=== PATIENT | female | born 1940 | race Caucasian/White ===

== ENCOUNTER 2017-11-26 16:04 | Inpatient (IN) | payer OTHER ==
[~2017-11-26] VITALS: Ht 157.5 cm; Wt 72.6 kg
[~2017-11-26 16:04] MED LIST: ALPRAZOLAM 0.50.5 M1 PO; AMLODIPINE BESYL5 MG PO; ATIVAN0.5 MG PO; ATORVASTATIN CA40 MG PO; BUSPIRONE HCL10 MG PO; COZAAR 50 MG TA50 M2 PO; CRESTOR10 MG; GLUCOPHAGE500 MG PO; MECLIZINE HCL12.5 MG PO; NITROFURANTOIN100 MG; PRILOSEC 20 MG20 MG PO; TOPROL XL50 MG PO; VENLAFAXIN37.5 MG/1 PO
[2017-11-26 16:05] VITALS: BP 128/58
[2017-11-26 16:27] LABS: ABSOLUTE BASOPHILS 0.1 thou/uL (0.0-0.2); ABSOLUTE EOSINOPHILS 0.2 thou/uL (0.0-0.7); ABSOLUTE LYMPHOCYTES 3.7 thou/uL (0.8-5.3); ABSOLUTE MONOCYTES 0.8 thou/uL (0.0-1.2); ABSOLUTE NEUTROPHILS 4.8 thou/uL (1.6-8.1); EOSINOPHILS 2.3 %; HEMATOCRIT 38.5 % (37.0-47.0); HEMOGLOBIN 13.1 gm/dL (12.0-15.0); LYMPHOCYTES 38.1 %; MCH 31.6 pg (26.0-34.0); MCHC 33.9 g/dL (28.0-37.0); MCV 93.3 fL (80.0-100.0); MONOCYTES 8.7 %; MPV 7.2 fl. (7.2-11.1); NUCLEATED RBCS 0 /100WBC; PLATELET COUNT* 450 thou/uL (150-400); POLYS 49.9 %; RBC 4.13 mil/uL (4.20-5.00); WBC 9.7 thou/uL (4.0-11.0)
[2017-11-26 16:36] LABS: ANION GAP 15 mmol/L (7-16); BUN 39 mg/dL (7-18); CALCIUM 8.7 mg/dL (8.5-10.1); CHLORIDE 96 mmol/L (98-107); CO2 21 mmol/L (21-32); CREATININE 1.6 mg/dL (0.6-1.3); GLUCOSE 125 mg/dL (70-99); POTASSIUM 3.2 mmol/L (3.5-5.1); SODIUM 132 mmol/L (136-145)
[2017-11-26 16:38] LABS: APTT 27.1 Seconds (25.0-31.3); INR 1.1; PROTIME 10.5 Seconds (9.20-11.50)
[2017-11-26 16:47] LABS: ALBUMIN 3.6 g/dL (3.4-5.0); ALKALINE PHOSPHATASE 79 U/L (46-116); NT-PRO BRAIN NAT PEPTIDE 253 pg/mL (<300); SGOT 19 U/L (15-37); SGPT 18 U/L (30-65); TOTAL BILIRUBIN 0.6 mg/dL (<0.1-1.0); TOTAL PROTEIN 7.1 g/dL (6.4-8.2); TROPONIN-I LEVEL <0.06 ng/mL (<0.06)
[2017-11-26 18:21] VITALS: BP 118/39
[2017-11-26 18:55] VITALS: BP 119/53
[2017-11-27] VITALS: BP 110/52
[2017-11-27 04:00] VITALS: BP 111/49
[2017-11-27 08:23] VITALS: BP 109/52
[2017-11-27 08:25] VITALS: BP 107/58; BP 119/54
[2017-11-27 09:21] LABS: URINE BILIRUBIN NEGATIVE (Negative); URINE BLOOD 1+ (Negative); URINE CLARITY CLEAR; URINE COLOR YELLOW; URINE GLUCOSE-RANDOM NEGATIVE (Negative); URINE KETONES NEGATIVE (Negative); URINE LEUKOCYTES-REFLEX NEGATIVE (Negative); URINE NITRITE-REFLEX NEGATIVE (Negative); URINE PROTEIN NEGATIVE (Negative); URINE UROBILINOGEN 0.2 E.U./dl (0.2-1.0)
[2017-11-27 09:27] LABS: BACTERIA-REFLEX 1-9 Few /HPF (None Seen); CASTS None Seen /LPF (None Seen); MUCUS 0-3 Light strn/LPF (None Seen); SQUAMOUS 0-3 Few /LPF (0-3); URINE RBC 3-10 Few /HPF (0-2); URINE WBC-REFLEX 0-5 Rare /HPF (0-5)
[2017-11-27 09:28] LABS: CRYSTALS None Seen /LPF (None Seen)
--- NOTE | 2017-11-27 11:59 | EKG ---
[place] [address] ELECTROCARDIOGRAM REPORT Name: AZAR TRAN Room: [address] ADM IN .R.#: [id number] Admission: 11/26/17 Attend Phys: Cinthya Sewell Discharge: Date of : 38 Report #: [id number] THIS REPORT FOR: //name// [facility] ED Test Date: 2017-11-26 Test Time: 16:21:20 Pat Name: AZAR TRAN Department: Room: [facility] Gender: F Physicist Astrophysics: : 1940 Requested By: Tomas Bill Order Number: [id number] MD: Francisco Mcneil Measurements Intervals [place] Rate: 58 P: 13 W[place]: 142 QRS: 16 QRSD: 77 T: 163 QT: 454 QTc: 446 Interpretive Statements Sinus rhythm short pr interval Ventricular premature complex Low voltage, precordial leads Nonspecific T abnrm, anterolateral leads Compared to ECG 11/15/2011 00:50:14 pvc noted Electronically Signed On 11-27-2017 11:59:35 CDT by Francisco Mcneil [email or web address] <ELECTRONICALLY SIGNED> By: Francisco Mcneil MD, [facility] 11/27/17 1159 1621 1621 Francisco Mcneil MD, [facility] /EPI
[2017-11-27 13:28] LABS: CHOLESTEROL 143 mg/dL (<200); HDL CHOLESTEROL 48 mg/dL (>40); LDL CHOLESTEROL 75 mg/dL (<100); TRIGLYCERIDE 102 mg/dL (<150); VLDL 20 mg/dL (<40)
[2017-11-27 13:33] LABS: SERUM ASSESSMENT Clear
[2017-11-27 16:00] VITALS: BP 116/57
[2017-11-27 17:06] VITALS: BP 116/57
--- NOTE | 2017-12-02 17:33 | EEG ---
[address] [address] EEG STUDY REPORT Name: CHELSEAAZAR S Room: [address]R#: [id number] Admission: 11/26/17 Attend Phys: Cinthya Sewell Discharge: 11/27/17 Date of : 38 Report #: [id number] THIS REPORT FOR: //name// CC: Иван Reynaga DATE OF SERVICE: 11/27/2017 This patient is being evaluated for dizziness. EEG was done by placing the electrodes by standard 10-20 system of electrode placement. Both referential and sequential montages were used for recording. This patient's EEG has a significant amount of artifact making the interpretation of this EEG very difficult. Background activity in this patient's EEG appeared to be about 10 Hz and 30 microvolt. This is a symmetrical activity. Photic stimulation was unremarkable. The patient went to sleep that was associated with bilateral slowing and vertex sharp waves. Throughout the record, no active epileptiform activity was noticed. IMPRESSION: This patient's EEG has a lot of artifact and is difficult to interpret, but does not appear to be showing any definite abnormality. Thank you very much for this referral. <ELECTRONICALLY SIGNED> By: Florentino Stephens MD 12/02/17 1733 1113 1138Florentino Stephens MD /chente
--- NOTE | 2017-12-02 17:33 | CON ---
[address] [address] CONSULTATION Name: CHELSEAAZRA S Room: [address] IN M.R.#: [id number] Admission: 11/26/17 Attend Phys: Cinthya Sewell Discharge: 11/27/17 Date of : 38 Report #: [id number] THIS REPORT FOR: //name// CC: Иван Reynaga DATE OF SERVICE: 11/27/2017 HISTORY OF PRESENT ILLNESS: This is a 77-year-old female patient who was evaluated by me for any neurological etiology for the patient's dizziness. The patient indicates that she had dizziness for which she was admitted. The episode they described that she was having this dizzy spell, which progressively became worse and then she passed out. She did not have any tonic-clonic activity. She improved and she had at least some dizziness in the past. History is not very clear in that regard. She said dizziness was severe when it happened. REVIEW OF SYSTEMS: Positive for the fact that she has a history of dyslipidemia. She does take multiple psychotropic medications. She has a history of anxiety, hysterectomy, acid reflux, hypertension. I carried out the 14-point review of system. It does not look like she is having any eye, cardiac, respiratory, GI, , musculoskeletal, constitutional, dermatological, hematological, psychiatric, throat, allergic symptom associated with present symptomatology. She does have a prior history of anxiety. PAST MEDICAL HISTORY: Positive for these kinds of spells, but further history is not clear. FAMILY HISTORY: Negative for early age stroke. SOCIAL HISTORY: She indicates she does not smoke. PHYSICAL EXAMINATION: NEUROLOGIC: Indicates she is alert. She is responsive. She can follow simple command. Her speech, concentration, fund of knowledge and memory is at her baseline. Cranial nerve examination 2-12 looks unremarkable. Strength, sensation, reflexes and tone looks symmetrical. There is no meningeal sign. There is no carotid bruit. There is no thyroid mass. I could not look at the fundus. She is a reasonably built individual who does not have any dysmorphic features of eyes, ears and face. Hearing may be somewhat impaired, but vision looks intact. EXTREMITIES: Pulses are difficult to feel. She has no edema, cyanosis or jaundice. CARDIAC: Appears unremarkable. LUNGS: No respiratory difficulty or rhonchi were noticed on either side. VITAL SIGNS: Blood pressure is 119/54, pulse is 83, temperature is 97.7. [place] [address] CONSULTATION Name: AZAR TRAN Room: [address]#: [id number] Admission: 11/26/17 Attend Phys: Cinthya Sewell Discharge: 11/27/17 Date of : 39 Report #: [id number] LABORATORY DATA: She is slightly hyponatremic and potassium is somewhat low. Her GFR is only 31. She did have an MRI, which was reviewed and that was okay and a carotid Doppler is okay. IMPRESSION: It is unlikely that there is any neurological etiology for the patient's symptom. I will do an EEG and a carotid Doppler to further exclude the neurological etiology, but I will suggest concentrating on evaluating her for ENT, cardiac or other systemic etiology as the cause of her symptom. I noticed you planned to check for orthostatic hypotension and that also may be considered in her case. RECOMMENDATIONS: 1. We will check the patient's MRA also. 2. I will check an EEG. 3. As I mentioned, neurological etiology is unlikely. If the above workup is unremarkable, then that will be even less likely. I will suggest mainly concentrating on evaluating and managing the non-neurological etiology for the patient's symptom. <ELECTRONICALLY SIGNED> By: Florentino Stephens MD 12/02/17 1733 1436 0733Florentino Stephens MD /nt
== END 2017-11-27 17:30 | disposition home or self-care (01) | DRG 683 ==
LOC: M.ERS 16:04 → M.TBA-ER 17:34 → M.2W 17:34
PROVIDERS: Family Medicine; ADMIT Internal Medicine
DX: N17.9 Acute kidney failure, unspecified (principal); E87.1 Hypo-osmolality and hyponatremia; K21.9 Gastro-esophageal reflux disease without esophagitis; E78.5 Hyperlipidemia, unspecified; I12.9 Hypertensive chronic kidney disease with stage 1 through stage 4 chronic kidney disease, or unspecified chronic kidney disease; E86.0 Dehydration; N18.3 Chronic kidney disease, stage 3 (moderate); I95.1 Orthostatic hypotension; F41.9 Anxiety disorder, unspecified; Z90.49 Acquired absence of other specified parts of digestive tract; Z90.710 Acquired absence of both cervix and uterus; Z79.899 Other long term (current) drug therapy; Z88.8 Allergy status to other drugs, medicaments and biological substances

== ENCOUNTER 2018-05-31 00:22 | Inpatient (IN) | payer OTHER ==
[~2018-05-31] VITALS: Ht 157.5 cm; Wt 74.8 kg
[2018-05-31] VITALS (9 sets, daily range): BP systolic 103–151; BP diastolic 48–87
[2018-05-31 00:59] LABS: ABSOLUTE BASOPHILS 0.1 thou/uL (0.0-0.2); ABSOLUTE EOSINOPHILS 0.2 thou/uL (0.0-0.7); ABSOLUTE LYMPHOCYTES 1.6 thou/uL (0.8-5.3); ABSOLUTE MONOCYTES 0.7 thou/uL (0.0-1.2); ABSOLUTE NEUTROPHILS 4.5 thou/uL (1.6-8.1); BASOPHILS 1.3 %; EOSINOPHILS 2.5 %; HEMATOCRIT 38.8 % (37.0-47.0); HEMOGLOBIN 13.1 gm/dL (12.0-15.0); LYMPHOCYTES 22.4 %; MCH 31.6 pg (26.0-34.0); MCHC 33.7 g/dL (28.0-37.0); MCV 93.6 fL (80.0-100.0); MONOCYTES 9.9 %; NUCLEATED RBCS 0 /100WBC; PLATELET COUNT* 342 thou/uL (150-400); POLYS 63.9 %; RBC 4.14 mil/uL (4.20-5.00)
[2018-05-31] MEDS ORDERED: BENICAR40 MG PO ×2 (01:15)
[2018-05-31] MEDS ORDERED: WELLBUTRIN XL150 MG PO (01:16)
[2018-05-31] MEDS ORDERED: ABILIFY 5 MG TAB5 M1 PO (01:16)
[2018-05-31] MEDS ORDERED: GLUCOPHAGE XR500 MG PO (01:17)
[2018-05-31] MEDS ORDERED: CRESTOR20 MG PO (01:18)
[2018-05-31] MEDS ORDERED: VITAMIN D PO (01:19)
[2018-05-31] MEDS ORDERED: METOPROLOL TART25 MG PO (01:19)
[2018-05-31] MEDS ORDERED: CYMBALTA60 MG PO (01:20)
[2018-05-31] MEDS ORDERED: SYNTHROID25 MC1 PO (01:20)
[2018-05-31] MEDS ORDERED: NITROGLYCERIN0.4 MG SUBLING (01:21)
[2018-05-31] MEDS ORDERED: OXYBUTYNIN 5 MG5 M2 PO (01:21)
[2018-05-31] MEDS ORDERED: ASPIRIN81 M2 PO (01:22)
[2018-05-31] MEDS ORDERED: MACROBID 100 M100 M1 PO (01:22)
[2018-05-31 01:23] LABS: ANION GAP 4 mmol/L (7-16); BUN 26 mg/dL (7-18); CALCIUM 8.9 mg/dL (8.5-10.1); CHLORIDE 102 mmol/L (98-107); CO2 25 mmol/L (21-32); CREATININE 1.4 mg/dL (0.6-1.3); GLUCOSE 98 mg/dL (70-99); POTASSIUM 4.4 mmol/L (3.5-5.1); SODIUM 131 mmol/L (136-145)
[2018-05-31] MEDS ORDERED: FLONASE 0.05%50 MCG NASAL (01:23)
[2018-05-31 01:26] LABS: APTT 26.8 Seconds (25.0-31.3); INR 1.1; PROTIME 10.9 Seconds (9.20-11.50)
[2018-05-31 01:30] LABS: ALBUMIN 3.3 g/dL (3.4-5.0); ALKALINE PHOSPHATASE 68 U/L (46-116); SGOT 17 U/L (15-37); SGPT 19 U/L (30-65); TOTAL BILIRUBIN 0.5 mg/dL (<0.1-1.0); TOTAL PROTEIN 6.5 g/dL (6.4-8.2); TROPONIN-I LEVEL <0.06 ng/mL (<0.06)
--- NOTE | 2018-05-31 05:00 | NUR ---
ASSUMED CARE OF PT AT 0215. PT IS ALERT AND ORIENTED. VSS. PERRLA. NO COMPLAINTS OF PAIN. PT IS UP TO COMMODE WITH ASSIST X'S 1. PT IS IN SINUS RYTHM ON THE TELEMETRY. PT IS RESTING COMFORTABLY IN BED. RESPIRATIONS ARE EVEN AND NONLABORED. WILL CONTINUE TO MONITOR PT.
[2018-05-31 05:59] LABS: URINE BILIRUBIN NEGATIVE (Negative); URINE BLOOD 1+ (Negative); URINE CLARITY CLEAR; URINE COLOR YELLOW; URINE GLUCOSE-RANDOM NEGATIVE (Negative); URINE KETONES NEGATIVE (Negative); URINE LEUKOCYTES-REFLEX TRACE (Negative); URINE NITRITE-REFLEX NEGATIVE (Negative); URINE PROTEIN NEGATIVE (Negative); URINE SPECIFIC GRAVITY <= 1.005 (1.005-1.030); URINE UROBILINOGEN 0.2 E.U./dl (0.2-1.0)
[2018-05-31 06:17] LABS: CASTS None Seen /LPF (None Seen); SQUAMOUS NONE SEEN /LPF (0-3)
[2018-05-31 06:18] LABS: BACTERIA-REFLEX None Seen /HPF (None Seen); CRYSTALS None Seen /LPF (None Seen); URINE RBC 0-2 Rare /HPF (0-2); URINE WBC-REFLEX 0-5 Rare /HPF (0-5)
--- NOTE | 2018-05-31 10:30 | NUR ---
ASSUMED CARE OF PT THIS AM AROUND 0715- SALES AND SERVICE ENGINEER IN PLACE ORDERED, TRACING SR- UPON ASSESSMENT PT NOTED TO BE RESTING IN BED, WATCHING TV- PT A&O X4- CONTINENT OF BOWEL AND BLADDER- LIMITED SBA WITH TRANSFERS FOR SAFETY- DIMINISHED LUNG SOUNDS NOTED- RESP EVEN AND UN-LABORED- VSS, O2 SAT 93% ON RA- ABD SOFT/ROUND/NON-TENDER, BS X4 QUADS- LAST BM REPORTED 05/30/18- IV NOTED TO RIGHT HAND INTACT AND SL- 1+ BLE EDEME NOTED- CARDIOLOGY CONSULTED THIS AM WITH ORTHOSTATS ORDERED AND COMPLETED IN [facility]- PT EVAL AND TREAT INITIATED THIS AM- LOSARTAN D/C'D WITH AMLODIPINE 2.5MG STARTED- PT DENIES ANY C/O PAIN/DISCOMFORT AT THIS TIME-CALL LIGHT AND PERSONAL BELONGINGS WITH IN REACH- HOURLY ROUNDS IN PLACE R/T SAFETY/NEEDS- ALL NEEDS MET AT THIS TIME-WCTM
--- NOTE | 2018-05-31 17:08 | NUR ---
PT CURRENTLY RESTING IN BED, WATCHING TV- MARKET RESEARCH SPECIALIST IN PLACE ORDERED, TRACING SR- IV NOTED TO RIGHT HAND INTACT AND SL- GOOD PO INTAKE NOTED THIS SHIFT WITH MEALS- PT AND SON EXPRESSED WISHES TO TO BE D/C'D MICHAEL- HERE TO SPEAK WITH PT AND SON TO ADDRESS CONCERNS WITH PROBABILITY OF D/C REPORTED WITH CAROTID US STAT ORDERED FOR TODAY- PT DENIES ANY C/O PAIN/DISCOMFORT AT THIS TIME- CALL LIGHT AND PERSONAL BELONGINGS WITH IN REACH- PT MAKES NEEDS KNOWN- ALL NEEDS MET AT THIS TIME-WCTM
[2018-06-01] VITALS: BP 127/63
--- NOTE | 2018-06-01 03:12 | NUR ---
ASSUMED PT CARE AT 1930. ASSESSMENT COMPLETED CHARTED. ABLE TO MAKE NEEDS KNOWN. PT C/O WEAKNESS AND DIZZINESS. UP WITH STANDBY ASSIST. VSS. PT RESTING IN BED AT THIS TIME. WILL CONTINUE TO MONITOR.
[2018-06-01 04:00] VITALS: BP 135/58
[2018-06-01 08:10] VITALS: BP 136/62
--- NOTE | 2018-06-01 09:50 | NUR ---
ASSUMED CARE OF PT THIS AM AROUND 0715- ASSISTANT FINANCE MANAGER IN PLACE ORDERED, TRACING SR- UPON ASSESSMENT PT NOTED TO BE RESTING IN BED- PT A&O X4- CONTINENT OF BOWEL AND BLADDER- SBA WITH TRANSFERS- LCTA, RESP EVEN AND UN-LABORED- VSS, O2 SAT 93% ON RA-ABD SOFT/ROUND/NON-TENDER, BS X4 QUADS- LAST BM REPORTED X2 DAYS AGO- IV NOTED TO RIGHT HAND INTACT AND SL- +1 BLE EDEMA NOTED- PT UP TO BED SIDE CHAIR THIS AM WITH BREAKFAST, GOOD PO INTAKE NOTED- STRESS ECHO/NUC STRESS PLANNED IN AM, NPO TO BE AT MIDNIGHT- BS MONITORED ORDERED, CONTROLLED PER METFORMIN- PT DENIES ANY C/O PAIN/DISCOMFORT AT THIS TIME- CALL LIGHT AND PERSONAL BELONGINGS WITH IN REACH- PT MAKES NEEDS KNOWN- ALL NEEDS MET AT THIS TIME-WCTM
[2018-06-01 11:39] VITALS: BP 118/59
[2018-06-01 11:56] VITALS: BP 118/59
[2018-06-01] MEDS ORDERED: NORVASC2.5 M1 PO (12:30)
--- NOTE | 2018-06-01 13:07 | NUR ---
PT ANXIUOS AND EXPRESSES WISHES TO TO [facility] D/C'D TODAY- HERE TO RE-ROUND ON PT TO ADDRESS CONCERNS- ORDERS RECIEVIED FOR OKAY TO D/C HOME WITH NEED FOR FOLLOW UP WITH CARDIOLOGY OUT PT FOR STRESS ECHO PER - NEEDED FOLLOW UP ALONG WITH CHANGED MEDICAITONS COMMUNICATED TO PT WITH VERBAL UNDERSTANDING RECIEVIED PER PT- IV TO RIGHT HAND D/C'D ALONG WITH BAKED AND GRAPHITE INSPECTOR PRIOR TO D/C- ALL QUESTIONS AND CONCERNS ADDRESSED PRIOR TO D/C-- WRITTEN EDUCATION ALONG WITH SCRIPTS PROVIDED TO PT PRIOR TO D/C- PT BELONGINGS PACKED AND ACCOUNTED FOR PER PT ADN SON- PT ESCORTED PER TECH VIA W/C TO VEHICLE WITH BELONGINGS; SON AT SIDE AT 1310- NO PROBLEMS TO NOTE AT TIME OF D/C
--- NOTE | 2018-06-02 10:59 | EKG ---
[place] [address] ELECTROCARDIOGRAM REPORT Name: AZAR TRAN Room: [address] IN M.R.#: [id number] Admission: 05/31/18 Attend Phys: Vikas Meek MD Discharge: 06/01/18 Date of : 39 Report #: [id number] THIS REPORT FOR: //name// [facility] ED Test Date: 2018-05-31 Test Time: 01:21:57 Pat Name: AZAR TRAN Department: Room: [facility] Gender: F Combine Inspector: JYOTI : 1940 Requested By: Tomas Bill Order Number: [id number] MD: Charles Kasper Measurements Intervals [place] Rate: 58 P: -15 [place]: 141 QRS: 7 QRSD: 95 T: 61 QT: 446 QTc: 439 Interpretive Statements Sinus rhythm Low voltage, precordial leads Compared to ECG 11/26/2017 16:21:20 Short CA interval no longer present Ventricular premature complex(es) no longer present Electronically Signed On 06-02-2018 10:59:00 COOKER SYRUP by Charles Kasper [email or web address] <ELECTRONICALLY SIGNED> By: Charles Kasper MD, [facility] 06/02/18 1059 0121 0121 Charles Kasper MD, [facility] /EPI
== END 2018-06-01 13:12 | disposition home or self-care (01) | DRG 982 ==
LOC: M.ERS 00:22 → M.TBA-ER 01:26 → M.2W 01:40
PROVIDERS: Family Medicine; ADMIT Internal Medicine
PROC: 0JQ00ZZ Repair Scalp Subcutaneous Tissue and Fascia, Open Approach (ICD-10-PCS; principal; 2018-05-31)
DX: I95.1 Orthostatic hypotension (principal); E87.1 Hypo-osmolality and hyponatremia; S01.01XA Laceration without foreign body of scalp, initial encounter; I25.10 Atherosclerotic heart disease of native coronary artery without angina pectoris; F41.9 Anxiety disorder, unspecified; F32.9 Major depressive disorder, single episode, unspecified; E11.9 Type 2 diabetes mellitus without complications; N28.9 Disorder of kidney and ureter, unspecified; I10 Essential (primary) hypertension; Y93.01 Activity, walking, marching and hiking; W18.30XA Fall on same level, unspecified, initial encounter; I65.29 Occlusion and stenosis of unspecified carotid artery; Z79.82 Long term (current) use of aspirin; Z79.899 Other long term (current) drug therapy; I25.2 Old myocardial infarction; Y99.8 Other external cause status; Y92.091 Bathroom in other non-institutional residence as the place of occurrence of the external cause; Z88.8 Allergy status to other drugs, medicaments and biological substances; Z79.84 Long term (current) use of oral hypoglycemic drugs; Z95.5 Presence of coronary angioplasty implant and graft; Z23 Encounter for immunization

== ENCOUNTER → 2018-06-13 | Outpatient (CLI) | payer OTHER ==
[~2018-06-13] MED LIST changes: +ABILIFY 5 MG TAB5 M1 PO; +ASPIRIN81 M2 PO; +BENICAR40 MG PO; +CRESTOR20 MG PO; +CYMBALTA60 MG PO; +FLONASE 0.05%50 MCG NASAL; +GLUCOPHAGE XR500 MG PO; +MACROBID 100 M100 M1 PO; +METOPROLOL TART25 MG PO; +NITROGLYCERIN0.4 MG SUBLING; +NORVASC2.5 M1 PO; +OXYBUTYNIN 5 MG5 M2 PO; +SYNTHROID25 MC1 PO; +VITAMIN D PO; +WELLBUTRIN XL150 MG PO
--- NOTE | ~2018-06-13 | EEG ---
[address] [address] EEG STUDY REPORT Name: AZAR TRAN Room: [facility]#: [id number] Admission: 06/13/18 Attend Phys: Florentino Stephens MD Discharge: Date of : 39 Report #: [id number] THIS REPORT FOR: //name// CC: Иван Stephens DATE OF SERVICE: 06/13/2018 This patient is being evaluated for dizziness. EEG was done by placing the electrode by standard 10-20 system of electrode placement. Both referential and sequential montages were used for recording. Background activity in this patient's EEG is about 8 Hz and 30 microvolt. It is a symmetrical activity. Photic stimulation was unremarkable. The patient became drowsy that is associated with bilateral slowing and vertex sharp waves. Throughout the record, no active epileptiform activity was noticed. IMPRESSION: This patient's EEG is unremarkable. Thank you very much for this referral. By: 1416 1650Florentino Stephens MD /nt
== END ==
LOC: M.CRD 09:27
DX: R42 Dizziness and giddiness (principal)

== ENCOUNTER 2018-07-06 12:51 | Emergency (ER) | payer OTHER ==
[~2018-07-06] VITALS: Ht 157.5 cm; Wt 72.6 kg
[2018-07-06] MEDS ORDERED: PROZAC40 MG PO (13:07)
[2018-07-06 14:44] LABS: ABSOLUTE BASOPHILS 0.1 thou/uL (0.0-0.2); ABSOLUTE EOSINOPHILS 0.1 thou/uL (0.0-0.7); ABSOLUTE LYMPHOCYTES 2.1 thou/uL (0.8-5.3); ABSOLUTE MONOCYTES 0.6 thou/uL (0.0-1.2); ABSOLUTE NEUTROPHILS 3.9 thou/uL (1.6-8.1); BASOPHILS 1.4 %; EOSINOPHILS 1.2 %; HEMATOCRIT 40.3 % (37.0-47.0); HEMOGLOBIN 13.5 gm/dL (12.0-15.0); LYMPHOCYTES 30.6 %; MCH 30.8 pg (26.0-34.0); MCHC 33.4 g/dL (28.0-37.0); MCV 92.1 fL (80.0-100.0); MONOCYTES 8.4 %; MPV 7.2 fl. (7.2-11.1); NUCLEATED RBCS 0 /100WBC; PLATELET COUNT* 406 thou/uL (150-400); POLYS 58.4 %; RBC 4.37 mil/uL (4.20-5.00); RDW-CV 13.9 % (10.5-14.5); WBC 6.7 thou/uL (4.0-11.0)
[2018-07-06 14:48] LABS: URINE BILIRUBIN NEGATIVE (Negative); URINE BLOOD 2+ (Negative); URINE CLARITY CLEAR; URINE COLOR YELLOW; URINE GLUCOSE-RANDOM NEGATIVE (Negative); URINE KETONES NEGATIVE (Negative); URINE LEUKOCYTES-REFLEX NEGATIVE (Negative); URINE NITRITE-REFLEX NEGATIVE (Negative); URINE PROTEIN NEGATIVE (Negative); URINE SPECIFIC GRAVITY 1.015 (1.005-1.030); URINE UROBILINOGEN 0.2 E.U./dl (0.2-1.0)
[2018-07-06 14:53] LABS: SQUAMOUS 0-3 Few /LPF (0-3)
[2018-07-06 14:54] LABS: URINE RBC 3-10 Few /HPF (0-2); URINE WBC-REFLEX 0-5 Rare /HPF (0-5)
[2018-07-06 14:55] LABS: AMP/METHAMP Negative (Negative); BACTERIA-REFLEX 1-9 Few /HPF (None Seen); BARBITURATES Negative (Negative); BENZODIAZEPINES Negative (Negative); CASTS None Seen /LPF (None Seen); COCAINE Negative (Negative); CRYSTALS None Seen /LPF (None Seen); METHADONE Negative (Negative); MUCUS None Seen strn/LPF (None Seen); OPIATES Negative (Negative); PCP Negative (Negative); THC Negative (Negative)
[2018-07-06] MEDS ORDERED: AMITRIPTYLINE H75 M1 PO (15:05)
[2018-07-06 15:06] LABS: ALBUMIN 3.6 g/dL (3.4-5.0); CALCIUM 9.1 mg/dL (8.5-10.1); CREATININE 1.3 mg/dL (0.6-1.3); POTASSIUM 3.8 mmol/L (3.5-5.1); TOTAL BILIRUBIN 0.4 mg/dL (<0.1-1.0)
[2018-07-06 15:21] VITALS: BP 130/82
== END 2018-07-06 15:22 | disposition home or self-care (01) ==
LOC: M.ERS 12:51
PROVIDERS: Personal Emergency Response Attendant
DX: F41.9 Anxiety disorder, unspecified (principal); G47.8 Other sleep disorders; T43.225A Adverse effect of selective serotonin reuptake inhibitors, initial encounter; I10 Essential (primary) hypertension; F32.9 Major depressive disorder, single episode, unspecified; E11.9 Type 2 diabetes mellitus without complications; Z88.8 Allergy status to other drugs, medicaments and biological substances; Y92.89 Other specified places as the place of occurrence of the external cause; Z79.899 Other long term (current) drug therapy

== ENCOUNTER → 2018-07-10 | Outpatient (CLI) | payer OTHER ==
[~2018-07-10] MED LIST changes: +AMITRIPTYLINE H75 M1 PO; +PROZAC40 MG PO
== END ==
LOC: M.LAB 11:58
DX: R42 Dizziness and giddiness (principal)

== ENCOUNTER 2018-12-21 15:27 | Observation (INO) | payer OTHER ==
[~2018-12-21] VITALS: Ht 157.5 cm; Wt 62.2 kg
[2018-12-21 15:27] VITALS: BP 91/57
[~2018-12-21 15:27] MED LIST changes: -VITAMIN D PO; +VITAMIN D5000 UNIT PO
[2018-12-21 16:18] LABS: ABSOLUTE BASOPHILS 0.1 thou/uL (0.0-0.2); ABSOLUTE EOSINOPHILS 0.1 thou/uL (0.0-0.7); ABSOLUTE LYMPHOCYTES 1.8 thou/uL (0.8-5.3); ABSOLUTE MONOCYTES 0.6 thou/uL (0.0-1.2); ABSOLUTE NEUTROPHILS 3.8 thou/uL (1.6-8.1); BASOPHILS 1.1 %; EOSINOPHILS 1.4 %; HEMATOCRIT 35.6 % (37.0-47.0); HEMOGLOBIN 11.9 gm/dL (12.0-15.0); LYMPHOCYTES 28.9 %; MCH 32.1 pg (26.0-34.0); MCHC 33.5 g/dL (28.0-37.0); MCV 95.9 fL (80.0-100.0); MONOCYTES 9.2 %; MPV 6.9 fl. (7.2-11.1); NUCLEATED RBCS 0 /100WBC; PLATELET COUNT* 346 thou/uL (150-400); POLYS 59.4 %; RBC 3.71 mil/uL (4.20-5.00); RDW-CV 13.5 % (10.5-14.5); WBC 6.3 thou/uL (4.0-11.0)
[2018-12-21 16:22] LABS: INR 1.1
[2018-12-21 16:23] LABS: ANION GAP 10 mmol/L (7-16); BUN 25 mg/dL (7-18); CALCIUM 8.4 mg/dL (8.5-10.1); CHLORIDE 103 mmol/L (98-107); CO2 24 mmol/L (21-32); CREATININE 1.5 mg/dL (0.6-1.3); GLUCOSE 113 mg/dL (70-99); POTASSIUM 4.1 mmol/L (3.5-5.1); SODIUM 137 mmol/L (136-145)
[2018-12-21 16:35] LABS: ALBUMIN 3.2 g/dL (3.4-5.0); ALKALINE PHOSPHATASE 58 U/L (46-116); LIPASE 120 U/L (73-393); NT-PRO BRAIN NAT PEPTIDE 345 pg/mL (<300); SGOT 12 U/L (15-37); SGPT 18 U/L (30-65); TOTAL BILIRUBIN 0.2 mg/dL (<0.1-1.0); TROPONIN-I LEVEL <0.06 ng/mL (<0.06)
[2018-12-21] MEDS ORDERED: ARICEPT 5 MG TAB5 MG PO (16:56)
[2018-12-21 16:58] LABS: URINE BILIRUBIN NEGATIVE (Negative); URINE BLOOD TRACE (Negative); URINE CLARITY CLEAR; URINE COLOR YELLOW; URINE GLUCOSE-RANDOM NEGATIVE (Negative); URINE KETONES NEGATIVE (Negative); URINE LEUKOCYTES-REFLEX 1+ (Negative); URINE NITRITE-REFLEX NEGATIVE (Negative); URINE PROTEIN NEGATIVE (Negative); URINE UROBILINOGEN 0.2 E.U./dl (0.2-1.0)
[2018-12-21] MEDS ORDERED: LAMICTAL XR100 MG PO (16:58)
[2018-12-21 17:03] LABS: SQUAMOUS 0-3 Few /LPF (0-3)
[2018-12-21 17:04] LABS: URINE WBC-REFLEX 6-15 Few /HPF (0-5)
[2018-12-21 17:05] LABS: BACTERIA-REFLEX >30 Many /HPF (None Seen); HYALINE CASTS 4-10 Moderate /LPF (None Seen); MUCUS >6 Heavy strn/LPF (None Seen); URINE RBC 0-2 Rare /HPF (0-2)
[2018-12-21 17:07] LABS: CRYSTALS None Seen /LPF (None Seen)
[2018-12-21 18:04] VITALS: BP 115/51
[2018-12-21 19:30] VITALS: BP 156/79
[2018-12-21 20:00] VITALS: BP 111/64
[2018-12-22] VITALS (7 sets, daily range): BP systolic 105–137; BP diastolic 55–62
--- NOTE | 2018-12-22 04:14 | NUR ---
ASSUMED PT CARE AFTER REPORT FROM ZULY SALAS AT 1930. PT IS AWAKE AND ORIENTED X4, FORGETFUL AT TIMES. VSS ON ROOM AIR. TRANSFER WORKER IN PLACE TRACING SR. ADMISSION ASSESSMENT DONE AND CHARTED. PT DENIES PAIN AND DIZZINESS, STATING SHE IS FEELING BETTER. PT IS ADVISED ON THE USE OF CALL LIGHT, AND ORIENTED TO ROOM SET UP. PT IS ABLE TO GET UP TO THE BATHROOM WITH STANDBY ASSIST, PT DENIES GETTING DIZZY ON AMBULATION. PT IS ABLE TO SLEEP MOST OF THE NIGHT. CALL LIGHT WITHIN REACH. FALL PRECAUTIONS IN PLACE. HOURLY ROUNDING DONE FOR PT SAFETY.
[2018-12-22 05:05] LABS: ABSOLUTE BASOPHILS 0.1 thou/uL (0.0-0.2); ABSOLUTE EOSINOPHILS 0.1 thou/uL (0.0-0.7); ABSOLUTE MONOCYTES 0.6 thou/uL (0.0-1.2); ABSOLUTE NEUTROPHILS 3.3 thou/uL (1.6-8.1); BASOPHILS 1.1 %; EOSINOPHILS 1.9 %; HEMATOCRIT 36.4 % (37.0-47.0); HEMOGLOBIN 12.1 gm/dL (12.0-15.0); LYMPHOCYTES 32.6 %; MCH 32.1 pg (26.0-34.0); MCHC 33.3 g/dL (28.0-37.0); MCV 96.4 fL (80.0-100.0); MONOCYTES 10.6 %; MPV 6.8 fl. (7.2-11.1); NUCLEATED RBCS 0 /100WBC; PLATELET COUNT* 323 thou/uL (150-400); POLYS 53.8 %; RBC 3.78 mil/uL (4.20-5.00); RDW-CV 13.6 % (10.5-14.5); WBC 6.1 thou/uL (4.0-11.0)
[2018-12-22 05:16] LABS: CALCIUM 8.4 mg/dL (8.5-10.1); CREATININE 1.2 mg/dL (0.6-1.3); POTASSIUM 4.1 mmol/L (3.5-5.1)
[2018-12-22] MEDS ORDERED: CEFUROXIME500 MG PO (09:54)
--- NOTE | 2018-12-22 12:00 | EKG ---
[place] [address] ELECTROCARDIOGRAM REPORT Name: CHELSEAAZAR WRIGHT Room: [address] M.R.#: [id number] Admission: 12/21/18 Attend Phys: Seth Goss MD Discharge: Date of : 38 Report #: [id number] THIS REPORT FOR: //name// [facility] ED Test Date: 2018-12-21 Test Time: 15:31:56 Pat Name: AZAR TRAN Department: Room: [facility] Gender: F Eyeglass Fitter: MT : 1940 Requested By: Donnie Joya Order Number: [id number] MD: Charles Kasper Measurements Intervals [place] Rate: 57 P: -5 [place]: 166 QRS: 22 QRSD: 85 T: 56 QT: 476 QTc: 464 Interpretive Statements Sinus rhythm Low voltage, precordial leads Compared to ECG 05/31/2018 01:21:57 No significant changes Electronically Signed On 12-22-2018 11:59:40 CDT by Charles Kasper [email or web address] <ELECTRONICALLY SIGNED> By: Charles Kasper MD, [facility] 12/22/18 1159 1531 1531 Charles Kasper MD, [facility] /EPI
--- NOTE | 2018-12-22 13:12 | NUR ---
Pt is A&O. Resides at home alone. Pt has 3 sons and 1 lives next door and assists as needed. Pt is able to cook and clean, stopped driving in July post vertigo dx. Pt has a walker and cane at home but states that she does not currently use either. Hx of [facility] HH. No hx of SNF. Goal is home at dc, no needs anticipated.
--- NOTE | 2018-12-22 15:20 | NUR ---
PT DC HOME. NEUROLOGY CONSULT TO HAVE PATIENT FOLLOW UP WITH ENT. PT ALERT AND ORIENTED X4. VSS. IV DC WITHOUT COMPLICATIONS. PT LEFT WITH SON, ALL BELONGINGS SENT.
--- NOTE | 2018-12-27 17:09 | CON ---
[address] [address] CONSULTATION Name: AZAR TRAN Room: [address] Deb Queen#: [id number] Admission: 12/21/18 Attend Phys: Seth Goss MD Discharge: 12/22/18 Date of : 39 Report #: [id number] THIS REPORT FOR: //name// CC: Seth Mckeonlinda [facility] DATE OF SERVICE: 12/22/2018 HISTORY OF PRESENT ILLNESS: This is a 78-year-old female patient who has trouble with longstanding episode of dizziness. I have seen this patient in the past and this patient has seen multiple physicians in the past. We could not determine any etiology for the patient's dizzy spell and she was referred to [facility]. They did some testing on her, but I do not know what they found. During this dizzy spell, she is fully conscious. She did not pass out. She thought she was going to pass out, but she stayed fully conscious. It is not clear what her blood pressure and pulse was during this episode. She was not feeling well during this episode and before that she was having some dizziness. She also had urinary tract infection and some nausea associated with this. REVIEW OF SYSTEMS: Indicates she has a history of anxiety, hypertension, dizzy spell for which she has seen Dr. Bravo who is an ENT physician. She said she does have a history of diabetes. She does not know what her blood sugar is at this time. She is on lamotrigine and in spite of that, she is having these spells. She does have a history of hypothyroidism as well as depression and anxiety. A 14-point review of system was carried out and it does not appear to be showing any new eye, ENT, cardiac, respiratory, GI, , musculoskeletal, constitutional, dermatological, hematological, psychiatric, throat, allergic symptom associated with present symptomatology. PAST MEDICAL HISTORY: Positive for these spells and reviewing her records will indicate that she had these kind of episode for a long period of time. FAMILY HISTORY: Mostly unremarkable. SOCIAL HISTORY: She says she does not abuse alcohol. PHYSICAL EXAMINATION: NEUROLOGIC: Indicate she is alert. She is responsive. She can follow simple commands. Her speech, concentration, fund of knowledge and memory is at her baseline. Cranial nerve examination 2-12 is unremarkable. Strength, sensation, reflexes, and tone is symmetrical. There is no cerebellar sign. I could not look at the fundus. There is no meningeal sign in this patient. She has no edema, cyanosis, or jaundice. She is moderately built individual. She has no thyroid mass. She has no respiratory difficulty, no cardiac symptoms. [place] [address] CONSULTATION Name: AZAR TRAN Room: [address] Deb Queen#: [id number] Admission: 12/21/18 Attend Phys: Seth Goss MD Discharge: 12/22/18 Date of : 38 Report #: [id number] VITAL SIGNS: Blood pressure is 122/55, respirations 14, pulse is 69, and temperature is 97.8. Her blood pressure was only 91/57 when she came in. LABORATORY DATA: Indicate a white count of 6.1. IMPRESSION: I again discussed with her that it is unlikely that her symptoms are because of neurological etiology. I offered to repeat the neurological workup, but she does not want to do that. I discussed the limitation of our hospital and discussed with her that she needs to follow up with a tertiary care and strongly recommended that she go to [facility] and follow the recommendation. They have instructed this patient to do multiple things, but she has not done that yet. Otherwise, I have nothing specific to add and should not drive. <ELECTRONICALLY SIGNED> By: Florentino Bradford MD 12/27/18 1709 1501 0058Florentino Bradford MD /nt
== END 2018-12-22 15:20 | disposition home or self-care (01) ==
LOC: M.ERS 15:27 → M.TBA-ER 17:13 → M.2W 17:13
PROVIDERS: Emergency Medicine; ADMIT Internal Medicine
DX: R55 Syncope and collapse (principal); E86.0 Dehydration; I95.9 Hypotension, unspecified; N39.0 Urinary tract infection, site not specified; E87.2 Acidosis; E11.9 Type 2 diabetes mellitus without complications; F41.9 Anxiety disorder, unspecified; Z88.8 Allergy status to other drugs, medicaments and biological substances; Z79.82 Long term (current) use of aspirin; Z79.84 Long term (current) use of oral hypoglycemic drugs; Z79.890 Hormone replacement therapy; Z79.899 Other long term (current) drug therapy; I10 Essential (primary) hypertension; I25.2 Old myocardial infarction

== ENCOUNTER 2019-01-07 16:23 | Emergency (ER) | payer OTHER ==
[~2019-01-07] VITALS: Ht 157.5 cm; Wt 78.9 kg
[~2019-01-07 16:23] MED LIST changes: +ARICEPT 5 MG TAB5 MG PO; +CEFUROXIME500 MG PO; +LAMICTAL XR100 MG PO
[2019-01-07 17:33] LABS: ABSOLUTE BASOPHILS 0.1 thou/uL (0.0-0.2); ABSOLUTE EOSINOPHILS 0.1 thou/uL (0.0-0.7); ABSOLUTE LYMPHOCYTES 1.9 thou/uL (0.8-5.3); ABSOLUTE MONOCYTES 0.6 thou/uL (0.0-1.2); EOSINOPHILS 1.2 %; HEMOGLOBIN 12.1 gm/dL (12.0-15.0); LYMPHOCYTES 28.5 %; MCH 31.8 pg (26.0-34.0); MCHC 33.6 g/dL (28.0-37.0); MCV 94.7 fL (80.0-100.0); MONOCYTES 9.5 %; MPV 6.9 fl. (7.2-11.1); NUCLEATED RBCS 0 /100WBC; PLATELET COUNT* 328 thou/uL (150-400); POLYS 59.8 %; RDW-CV 13.5 % (10.5-14.5); WBC 6.8 thou/uL (4.0-11.0)
[2019-01-07 17:39] LABS: CALCIUM 8.5 mg/dL (8.5-10.1); CREATININE 1.3 mg/dL (0.6-1.3); POTASSIUM 4.1 mmol/L (3.5-5.1)
[2019-01-07 17:43] LABS: ALBUMIN 3.4 g/dL (3.4-5.0); MAGNESIUM 1.7 mg/dL (1.8-2.4); TOTAL BILIRUBIN 0.2 mg/dL (<0.1-1.0); TOTAL PROTEIN 6.3 g/dL (6.4-8.2)
[2019-01-07 18:31] LABS: URINE BILIRUBIN NEGATIVE (Negative); URINE BLOOD 2+ (Negative); URINE CLARITY CLEAR; URINE COLOR YELLOW; URINE GLUCOSE-RANDOM NEGATIVE (Negative); URINE KETONES NEGATIVE (Negative); URINE LEUKOCYTES-REFLEX 1+ (Negative); URINE NITRITE-REFLEX NEGATIVE (Negative); URINE PROTEIN NEGATIVE (Negative); URINE SPECIFIC GRAVITY 1.015 (1.005-1.030); URINE UROBILINOGEN 0.2 E.U./dl (0.2-1.0)
[2019-01-07 18:42] VITALS: BP 113/65
[2019-01-07 18:54] LABS: HYALINE CASTS 0-3 Few /LPF (None Seen); URINE RBC 3-10 Few /HPF (0-2); URINE WBC-REFLEX 6-15 Few /HPF (0-5)
[2019-01-07 18:55] LABS: BACTERIA-REFLEX 1-9 Few /HPF (None Seen); CRYSTALS None Seen /LPF (None Seen); MUCUS None Seen strn/LPF (None Seen); SQUAMOUS 0-3 Few /LPF (0-3)
--- NOTE | 2019-01-08 15:53 | EKG ---
[place] [address] ELECTROCARDIOGRAM REPORT Name: CHELSEAAZAR ADRIANA Room: [facility]#: [id number] Admission: 01/07/19 Attend Phys: Discharge: 01/07/19 Date of : 38 Report #: [id number] THIS REPORT FOR: //name// [facility] ED Test Date: 2019-01-07 Test Time: 17:20:42 Pat Name: AZAR TRAN Department: Room: Gender: F Color Checker Roving Or Yarn: : 1940 Requested By: Deborah Cortes Order Number: [id number] MD: Tom Hinojosa Measurements Intervals [place] Rate: 56 P: 19 [place]: 164 QRS: 20 QRSD: 88 T: 47 QT: 494 QTc: 477 Interpretive Statements Sinus rhythm Low voltage, precordial leads Borderline prolonged QT interval Compared to ECG 12/21/2018 15:31:56 No significant changes Electronically Signed On 01-08-2019 15:53:08 CDT by Tom Hinojosa [email or web address] <ELECTRONICALLY SIGNED> By: Tom Hinojosa MD, [facility] 01/08/19 1553 1720 172 Tom Hinojosa MD, [facility] /EPI
== END 2019-01-07 18:54 | disposition home or self-care (01) ==
LOC: M.ERS 16:23
PROVIDERS: Personal Emergency Response Attendant
DX: R42 Dizziness and giddiness (principal); I10 Essential (primary) hypertension; E11.9 Type 2 diabetes mellitus without complications; F41.9 Anxiety disorder, unspecified; F32.9 Major depressive disorder, single episode, unspecified; Z88.8 Allergy status to other drugs, medicaments and biological substances

== ENCOUNTER → 2019-01-22 | Outpatient (CLI) | payer OTHER ==
[2019-01-22 11:40] LABS: CREATININE 1.2 mg/dL (0.6-1.3)
[2019-01-22 14:46] VITALS: BP 118/42
[2019-01-22 15:27] VITALS: BP 132/69
== END ==
LOC: M.LAB 10:30 → M.CT 11:30
PROVIDERS: Registered Nurse
DX: I25.10 Atherosclerotic heart disease of native coronary artery without angina pectoris (principal); R07.89 Other chest pain; E11.9 Type 2 diabetes mellitus without complications; I10 Essential (primary) hypertension; E78.5 Hyperlipidemia, unspecified; Z79.899 Other long term (current) drug therapy; Z90.710 Acquired absence of both cervix and uterus

== ENCOUNTER 2019-10-25 08:42 | Emergency (ER) | payer OTHER ==
[~2019-10-25] VITALS: Ht 157.5 cm; Wt 74.8 kg
[2019-10-25 09:21] LABS: ABSOLUTE EOSINOPHILS 0.1 thou/uL (0.0-0.7); ABSOLUTE LYMPHOCYTES 1.3 thou/uL (0.8-5.3); ABSOLUTE MONOCYTES 0.4 thou/uL (0.0-1.2); ABSOLUTE NEUTROPHILS 5.4 thou/uL (1.6-8.1); BASOPHILS 0.3 %; EOSINOPHILS 0.8 %; HEMATOCRIT 37.2 % (37.0-47.0); HEMOGLOBIN 12.8 gm/dL (12.0-15.0); LYMPHOCYTES 18.6 %; MCH 32.3 pg (26.0-34.0); MCHC 34.5 g/dL (28.0-37.0); MCV 93.7 fL (80.0-100.0); MONOCYTES 5.9 %; MPV 6.9 fl. (7.2-11.1); NUCLEATED RBCS 0 /100WBC; PLATELET COUNT* 341 thou/uL (150-400); POLYS 74.4 %; RBC 3.97 mil/uL (4.20-5.00); RDW-CV 12.7 % (10.5-14.5); WBC 7.2 thou/uL (4.0-11.0)
[2019-10-25 09:24] LABS: CALCIUM 8.5 mg/dL (8.5-10.1); CREATININE 1.4 mg/dL (0.6-1.3); POTASSIUM 3.6 mmol/L (3.5-5.1)
[2019-10-25 09:29] LABS: ALBUMIN 3.2 g/dL (3.4-5.0); TOTAL BILIRUBIN 0.3 mg/dL (<0.1-1.0); TOTAL PROTEIN 6.5 g/dL (6.4-8.2)
[2019-10-25 09:45] LABS: INR 1.1; PROTIME 10.9 Seconds (9.20-11.50)
[2019-10-25] MEDS ORDERED: NORCO 5-325 TA1 EAC2 PO (10:22)
[2019-10-25 10:44] VITALS: BP 115/63
[2019-10-26] MEDS ORDERED: LIDODERM1 EACH TOP ×2 (22:36→22:40)
[2019-10-26] MEDS ORDERED: TYLENOL WITH CO1 TA1 PO (22:36)
== END 2019-10-25 10:44 | disposition home or self-care (01) ==
LOC: M.ERS 08:42
PROVIDERS: Family Medicine
DX: S30.0XXA Contusion of lower back and pelvis, initial encounter (principal); I10 Essential (primary) hypertension; E11.9 Type 2 diabetes mellitus without complications; F41.9 Anxiety disorder, unspecified; F32.9 Major depressive disorder, single episode, unspecified; Z90.49 Acquired absence of other specified parts of digestive tract; Z88.8 Allergy status to other drugs, medicaments and biological substances; W18.39XA Other fall on same level, initial encounter; Y93.89 Activity, other specified; Y92.89 Other specified places as the place of occurrence of the external cause; Y99.8 Other external cause status

== ENCOUNTER 2019-10-26 19:49 | Emergency (ER) | payer OTHER ==
[~2019-10-26] VITALS: Ht 157.5 cm; Wt 78.5 kg
[~2019-10-26 19:49] MED LIST changes: +NORCO 5-325 TA1 EAC2 PO
[2019-10-26 20:36] LABS: ABSOLUTE BASOPHILS 0.1 thou/uL (0.0-0.2); ABSOLUTE EOSINOPHILS 0.1 thou/uL (0.0-0.7); ABSOLUTE LYMPHOCYTES 1.5 thou/uL (0.8-5.3); ABSOLUTE MONOCYTES 0.7 thou/uL (0.0-1.2); ABSOLUTE NEUTROPHILS 5.3 thou/uL (1.6-8.1); BASOPHILS 0.8 %; HEMATOCRIT 34.4 % (37.0-47.0); HEMOGLOBIN 12.2 gm/dL (12.0-15.0); LYMPHOCYTES 19.3 %; MCH 33.1 pg (26.0-34.0); MCHC 35.5 g/dL (28.0-37.0); MCV 93.1 fL (80.0-100.0); MONOCYTES 9.8 %; MPV 6.7 fl. (7.2-11.1); NUCLEATED RBCS 0 /100WBC; PLATELET COUNT* 333 thou/uL (150-400); POLYS 69.1 %; RBC 3.69 mil/uL (4.20-5.00); RDW-CV 12.8 % (10.5-14.5); WBC 7.6 thou/uL (4.0-11.0)
[2019-10-26 20:45] LABS: CALCIUM 8.3 mg/dL (8.5-10.1); CREATININE 1.4 mg/dL (0.6-1.3); POTASSIUM 4.4 mmol/L (3.5-5.1)
[2019-10-26 20:46] LABS: PROTIME 10.7 Seconds (9.20-11.50)
[2019-10-26 20:56] LABS: ALBUMIN 3.2 g/dL (3.4-5.0); MAGNESIUM 1.8 mg/dL (1.8-2.4); TOTAL BILIRUBIN 0.3 mg/dL (<0.1-1.0); TOTAL PROTEIN 6.3 g/dL (6.4-8.2)
[2019-10-26] MEDS ORDERED: LIDODERM1 EACH TOP ×2 (22:36→22:40)
[2019-10-26] MEDS ORDERED: TYLENOL WITH CO1 TA1 PO (22:36)
[2019-10-26 23:17] VITALS: BP 130/72
--- NOTE | 2019-10-27 13:21 | EKG ---
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 Drier Operator: SAMPSON : 1940 Requested By: Shirley Ferrari Order Number: [id number] MD: Francisco Mcneil Measurements Intervals [place] Rate: 64 P: -6 [place]: 154 QRS: 19 QRSD: 88 T: 36 QT: 427 QTc: 441 Interpretive Statements Sinus rhythm Low voltage, precordial leads Borderline T wave abnormalities Baseline wander in lead(s) II,III,aVR,aVL,aVF,V5 Compared to ECG 01/07/2019 17:20:42 T-wave abnormality now present Electronically Signed On 10-27-2019 13:21:24 CDT by Francisco Mcneil [email or web address] <ELECTRONICALLY SIGNED> By: Francisco cMneil MD, [facility] 10/27/19 1321 34 34 Francisco Mcneil MD, [facility] /EPI
== END 2019-10-26 22:20 | disposition home or self-care (01) ==
LOC: M.ERS 19:49
PROVIDERS: Emergency Medicine
DX: S22.41XA Multiple fractures of ribs, right side, initial encounter for closed fracture (principal); S32.028A Other fracture of second lumbar vertebra, initial encounter for closed fracture; R42 Dizziness and giddiness; I10 Essential (primary) hypertension; I25.2 Old myocardial infarction; E11.9 Type 2 diabetes mellitus without complications; Z88.8 Allergy status to other drugs, medicaments and biological substances; Z79.82 Long term (current) use of aspirin; Z79.899 Other long term (current) drug therapy; W18.30XA Fall on same level, unspecified, initial encounter; Y93.89 Activity, other specified; Y92.89 Other specified places as the place of occurrence of the external cause; Y99.9 Unspecified external cause status

== ENCOUNTER 2020-03-08 20:49 | Inpatient (IN) | payer OTHER ==
[~2020-03-08] VITALS: Ht 157.5 cm; Wt 76.7 kg
[~2020-03-08 20:49] MED LIST changes: +LIDODERM1 EACH TOP; +TYLENOL WITH CO1 TA1 PO
[2020-03-08 21:00] VITALS: BP 124/67
[2020-03-08 21:42] LABS: ABSOLUTE EOSINOPHILS 0.1 thou/uL (0.0-0.7); ABSOLUTE LYMPHOCYTES 1.7 thou/uL (0.8-5.3); ABSOLUTE MONOCYTES 0.7 thou/uL (0.0-1.2); ABSOLUTE NEUTROPHILS 4.7 thou/uL (1.6-8.1); BASOPHILS 0.6 %; EOSINOPHILS 0.9 %; HEMATOCRIT 35.9 % (37.0-47.0); HEMOGLOBIN 12.2 gm/dL (12.0-15.0); LYMPHOCYTES 23.1 %; MCH 31.7 pg (26.0-34.0); MONOCYTES 10.3 %; MPV 6.5 fl. (7.2-11.1); NUCLEATED RBCS 0 /100WBC; PLATELET COUNT* 336 thou/uL (150-400); POLYS 65.1 %; RBC 3.85 mil/uL (4.20-5.00); RDW-CV 13.5 % (10.5-14.5); WBC 7.2 thou/uL (4.0-11.0)
[2020-03-08 21:47] LABS: CREATININE 1.7 mg/dL (0.6-1.3); POTASSIUM 4.5 mmol/L (3.5-5.1)
[2020-03-08 21:51] LABS: BE -4.3 mmol/L (-2 to +3); PCO2 35.4 mmHg (35.0-45.0); pH 7.375 (7.340-7.450)
[2020-03-08 21:52] LABS: ALBUMIN 3.5 g/dL (3.4-5.0); MAGNESIUM 1.7 mg/dL (1.8-2.4); TOTAL BILIRUBIN 0.2 mg/dL (<0.1-1.0)
[2020-03-08 22:01] LABS: APTT 25.4 Seconds (25.0-31.3); PROTIME 10.9 Seconds (9.20-11.50)
[2020-03-08 22:04] LABS: PO2 135.9 mmHg (75.0-100.0)
[2020-03-08 22:35] LABS: INFLUENZA A ANTIGEN Negative (Negative); INFLUENZA B ANTIGEN Negative (Negative)
[2020-03-08 22:43] LABS: URINE BILIRUBIN NEGATIVE (Negative); URINE BLOOD 1+ (Negative); URINE CLARITY CLEAR; URINE COLOR YELLOW; URINE GLUCOSE-RANDOM NEGATIVE (Negative); URINE KETONES NEGATIVE (Negative); URINE LEUKOCYTES-REFLEX TRACE (Negative); URINE NITRITE-REFLEX NEGATIVE (Negative); URINE PROTEIN 1+ (Negative); URINE SPECIFIC GRAVITY 1.025 (1.005-1.030); URINE UROBILINOGEN 0.2 E.U./dl (0.2-1.0)
[2020-03-08 22:53] LABS: BACTERIA-REFLEX >30 Many /HPF (None Seen); URINE WBC-REFLEX 6-15 Few /HPF (0-5)
[2020-03-08 22:54] LABS: AMORPHOUS URATES Moderate /LPF (None Seen); HYALINE CASTS 0-3 Few /LPF (None Seen); MUCUS None Seen strn/LPF (None Seen); URINE RBC 0-2 Rare /HPF (0-2)
[2020-03-08 22:55] LABS: SQUAMOUS 0-3 Few /LPF (0-3)
[2020-03-08 23:45] VITALS: BP 107/44
[2020-03-09] VITALS: BP 106/58
[2020-03-09 04:00] VITALS: BP 115/62
--- NOTE | 2020-03-09 06:52 | NUR ---
PT RECIEVED FROM ED IN ROOM 227. SAT MAINTAINED IN RA. PT IS VERY WEAK. DENIES PAIN AND SOB. CALL LIGHT WITHIN REACH AND BED IN LOW POSITION. HOURLY ROUNDING DONE FOR PT SAFETY.
[2020-03-09 07:30] VITALS: BP 118/65
--- NOTE | 2020-03-09 09:32 | NUR ---
CM SPOKE TO THE PT TO DISCUSS CM ASSESSMENT. PT A&O, AND INDEPENDENT WITH ADL'S. PT RESIDES AT HOME ALONE, AND HER SON LIVES NEXT DOOR. PT INFORMS THAT HER ON ASSIST HER WITH [employer] SHOPPING AND TRANSPORATION. PT USES A WALKER FOR MOBILITY, BUT SHE ALSO OWNS A CANE. PT HAS HH HX WITH [facility]. PT HAS 0 HX OF SNF. CM WILL REMAIN AVAILABLE TO ASSIST AND FOLLOW NEEDED.
[2020-03-09 11:00] VITALS: BP 130/64
[2020-03-09 11:02] LABS: CALCIUM 8.3 mg/dL (8.5-10.1); CREATININE 1.5 mg/dL (0.6-1.3); TOTAL BILIRUBIN 0.2 mg/dL (<0.1-1.0)
--- NOTE | 2020-03-09 12:44 | 2DMMODE ---
[place] [address] 2 D/M-MODE ECHOCARDIOGRAM Name: AZAR TRAN Room: [facility]1 ADM IN .R.#: [id number] Admission: 03/09/20 Attend Phys: Seth Goss, Discharge: Date of : 38 Date of Service: 03/09/20 1244 Report #: [id number] THIS REPORT FOR: cc: Иван Whatley Ghaison F. DO Holkins, John M. MD [facility] ~ APPROVED REPORT Study performed: 03/09/2020 09:22:38 EXAM: Comprehensive 2D, Doppler, and color-flow Echocardiogram Patient Location: In-Patient Room #: 227 Status: routine BSA: 1.77 HR: 69 bpm BP: 118/65 mmHg Rhythm: NSR Other Information Study Quality: Good Indications CVA/TIA Echo Enhancing Agent Indication: Rule out Shunt Agent(s) / Amount(s) Used: Agitated Saline 10 cc 2D Dimensions IVSd: 11.06 (7-11mm) LVOT Diam: 20.71 (18-24mm) LVDd: 38.28 mm PWd: 9.92 (7-11mm) Ascending Ao: 32.98 (22-36mm) LVDs: 24.97 (25-40mm) Aortic Root: 29.73 mm Volumes Left Atrial Volume (Systole) LA ESV Index: 22.20 mL/m2 Aortic Valve AoV Peak Enrrique.: 1.82 m/s AO Peak Gr.: 13.27 mmHg LVOT Max P.79 mmHg AO Mean Gr.: 7.83 mmHg LVOT Mean P.57 [place] [address] 2 D/M-MODE ECHOCARDIOGRAM Name: CHELSEAAZARMARVA WRIGHT Room: [address] IN M.R.#: [id number] Admission: 03/09/20 Attend Phys: Seth Goss, Discharge: Date of : 38 Date of Service: 03/09/20 1244 Report #: [id number] LVOT Max V: 1.20 m/s AO V2 VTI: 31.51 cm LVOT Mean V: 0.72 m/s JOE (VTI): 2.39 cm2 LVOT V1 VTI: 22.34 cm Mitral Valve E/A Ratio: 0.53 MV Decel. Time: 319.08 ms MV E Max Enrrique.: 0.69 m/s MV PHT: 92.53 ms MVA (PHT): 2.38 cm2 TDI E/Lateral E': 6.90 E/Medial E': 8.63 Medial E' Enrrique.: 0.08 m/s Lateral E' Enrrique.: 0.10 m/s Pulmonary Valve PV Peak Enrrique.: 0.87 m/s PV Peak Gr.: 3.01 mmHg Left Ventricle The left ventricle is normal size. There is normal LV segmental wall motion. There is normal left ventricular wall thickness. Left ventricular systolic function is normal. The left ventricular ejection fraction is within the normal range. LVEF is 60%. Grade I - abnormal relaxation pattern. Right Ventricle The right ventricle is normal size. The right ventricular systolic function is normal. Atria The left atrium size is normal. The interatrial septum is intact with no evidence for an atrial septal defect. The right atrium size is normal. Aortic Valve Mild aortic valve sclerosis. No aortic regurgitation is present. No hemodynamically significant valvular aortic stenosis. Mitral Valve The mitral valve is normal in structure. There is no mitral valve regurgitation noted. No evidence of mitral valve stenosis. Tricuspid Valve The tricuspid valve is normal in structure. There is no tricuspid [place] [address] 2 D/M-MODE ECHOCARDIOGRAM Name: AZAR TRAN Room: [place] [address] ADM IN M.R.#: [id number] Admission: 03/09/20 Attend Phys: Seth Goss, Discharge: Date of : 38 Date of Service: 03/09/20 1244 Report #: [id number] Pulmonic Valve The pulmonary valve is normal in structure. There is no pulmonic valvular regurgitation. Great Vessels The aortic root is normal in size. IVC is normal in size and collapses >50% with inspiration. Pericardium There is no pericardial effusion. <Conclusion> The left ventricle is normal size. There is normal left ventricular wall thickness. Left ventricular systolic function is normal. The left ventricular ejection fraction is within the normal range. LVEF is 60%. Grade I - abnormal relaxation pattern. The right ventricle is normal size. The left atrium size is normal. Mild aortic valve sclerosis. No aortic regurgitation is present. No hemodynamically significant valvular aortic stenosis. The mitral valve is normal in structure. The tricuspid valve is normal in structure. IVC is normal in size and collapses >50% with inspiration. There is no pericardial effusion. There is normal LV segmental wall motion. The interatrial septum is intact with no evidence for an atrial septal defect. <ELECTRONICALLY SIGNED> By: Charles Kasper MD, FACC 03/09/20 1244 1244 1244 Charles Kasper MD, FACC /INF
--- NOTE | 2020-03-09 13:15 | EKG ---
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: DAIN : 1940 Requested By: Deborah Cortes Order Number: [id number] Melissa MD: Charles Kasper Measurements Intervals [place] Rate: 56 P: HI: QRS: 7 QRSD: 109 T: 48 QT: 458 QTc: 443 Interpretive Statements Sinus bradycardia Low voltage, precordial leads Abnormal R-wave progression, early transition Compared to ECG 10/26/2019 20:35:5 T-wave abnormality no longer present Electronically Signed On 03-09-2020 13:15:43 STEEL PLACER by Charles Kasper [email or web address] <ELECTRONICALLY SIGNED> By: Charles Kasper MD, FACC 03/09/20 1315 56 56 Charles Kasper MD, FACC /EPI
[2020-03-09 16:30] VITALS: BP 127/64
--- NOTE | 2020-03-09 17:35 | NUR ---
A&OX 4, LITTLE FORGETFUL. HAD ECHO AND CAROTID DOPPLER AT BEDSIDE THIS AM. WENT DOWN FOR ABD SERIES (KUB). PT PASSED HER SWALLOW SCREEN. SCD'S ON SHARLENE CALF'S. CARDIOLOGY SIGNED OFF. STATED A-FIB EKG WAS NOT CORRECT. WAS SR. PT HAS BEEN IN SR ALL DAY. SON AT BEDSIDE. UP TO COMMODE WITH STANDBY ASSIST. BUT DID NEED MAX ASSIST TO GET HER UP TO SIT ON SIDE OF BED. IV LEFT HAND WITH COBAND. NS AT 100MLS/HR. PEDAL PULSES PRESENT. NO EDEMA NOTED. BLOOD SUGARS THIS AM 94, LUNCH 121, AND DINNER 102. CALL LIGHT WITHIN REACH. BED ALARM ON FOR SAFETY. WILL CONTINUE TO MONITOR.
[2020-03-09 20:10] VITALS: BP 100/56
[2020-03-10] VITALS: BP 106/42
[2020-03-10 04:00] VITALS: BP 113/62
[2020-03-10 04:06] LABS: GLYCOHEMOGLOBIN (HGB A1C) 6.1 % (4.8-5.6)
[2020-03-10 04:28] LABS: ABSOLUTE BASOPHILS 0.1 thou/uL (0.0-0.2); ABSOLUTE EOSINOPHILS 0.2 thou/uL (0.0-0.7); ABSOLUTE MONOCYTES 0.6 thou/uL (0.0-1.2); ABSOLUTE NEUTROPHILS 3.6 thou/uL (1.6-8.1); BASOPHILS 0.9 %; EOSINOPHILS 2.6 %; HEMOGLOBIN 11.5 gm/dL (12.0-15.0); LYMPHOCYTES 31.4 %; MCH 31.6 pg (26.0-34.0); MCHC 33.8 g/dL (28.0-37.0); MCV 93.5 fL (80.0-100.0); MONOCYTES 9.5 %; MPV 6.6 fl. (7.2-11.1); NUCLEATED RBCS 0 /100WBC; PLATELET COUNT* 329 thou/uL (150-400); POLYS 55.6 %; RBC 3.64 mil/uL (4.20-5.00); RDW-CV 13.4 % (10.5-14.5); WBC 6.4 thou/uL (4.0-11.0)
[2020-03-10 04:57] LABS: CREATININE 1.4 mg/dL (0.6-1.3)
[2020-03-10 05:03] LABS: POTASSIUM 5.1 mmol/L (3.5-5.1)
[2020-03-10 05:05] LABS: CHOLESTEROL 99 mg/dL (<200); HDL CHOLESTEROL 44 mg/dL (>40); LDL CHOLESTEROL 37 mg/dL (<100); TC:HDL 2.3 Ratio (Not establshd); TRIGLYCERIDE 92 mg/dL (<150); VLDL 18 mg/dL (<40)
[2020-03-10 05:06] LABS: SERUM ASSESSMENT Clear
--- NOTE | 2020-03-10 05:44 | NUR ---
PT CARE ASSUMED AT 1930. SAT MAINTAINED IN RA. DENIES SOB. C/O PAIN, MEDICATION GIVEN PER EMAR. CALL LIGHT WITHIN REACH AND BED IN LOW POSITION. HOURLY ROUNDING DONE FOR PT SAFETY.
[2020-03-10 08:08] VITALS: BP 121/70
--- NOTE | 2020-03-10 09:51 | NUR ---
ASSUMED CARE OF PT THIS AM AROUND 0715- HOME ENERGY CONSULTANT SUPERVISOR IN PLACE ORDERED, TRACING SR- UPON ASSESSMENT PT NOTED TO BE RESTING IN BED, WATCHING TV- PT A&O X4- CONTINENT OF B/B- SBA WITH TRANSFERS FOR SAFETY- LCTA, RESP EVEN AND UN-LABORED- VSS, O2 SAT 93% ON RA- ABD SOFT/ROUND/NON-TENDER, BS X4 QUADS- BS X4 QUAD- LAST BM REPORTED 03/08/20- IV NOTED TO LEFT HAND INTACT, IVF INFUSSING PRESCRIBED- GOOD PO INTAKE NOTED THIS AM WITH BREAKFAST, BS MONITORED ORDERED WITH ORAL MEDICATIONS PRESCRIBED- PT UP WORKING WITH THERAPIES THIS AM PRESCRIBED, TOLERATING WELL-MG NOTED AT 1.7 THIS AM AND IS CURRENLTY BEING REPLACED PER PROTOCOL- DENIES ANY C/O PAIN/DISCOMFORT AT THIS TIME- CALL LIGHT AND PERSONAL BELONGINGS WITH IN REACH- ALL NEEDS MET AT THIS TIME-WCTM
[2020-03-10] MEDS ORDERED: CIPRO500 MG PO (10:05)
[2020-03-10 11:07] VITALS: BP 121/70
[2020-03-10 14:26] VITALS: BP 121/70
--- NOTE | 2020-03-13 10:55 | CON ---
[address] [address] CONSULTATION Name: AZAR TRAN Room: [address] IN M.R.#: [id number] Admission: 03/09/20 Attend Phys: Seth Goss MD Discharge: 03/10/20 Date of : 38 Report #: [id number] THIS REPORT FOR: //name// cc: Иван Whatley Ghaison F. DO ~ DATE OF SERVICE: 03/09/2020 HISTORY OF PRESENT ILLNESS: This is an 79-year-old female patient who is a poor historian. I could not get a well-defined history in this patient. I reviewed the patient's present records and subsequently reviewed the patient's prior records also. This patient had multiple admissions to the hospital and she was seen by Dr. Duffy as per records long time ago and she was seen by me in 2018, at that time she was having anxiety, dizziness and multiple other symptoms. She did have MRI in 2018 and it did not show any definite abnormality. I put a call to Dr. Goss, the hospitalist admitting the patient to discuss further and the patient and her history. From the records in the Emergency Room, it looks like she has a history of atrial fibrillation. I do not know whether that is new or old. REVIEW OF SYSTEMS: A 14-point review of system was carried out. This patient had prior history of dizziness. She has been admitted multiple times here. She gives a history that she is not able to walk very well because she is getting weaker. It is difficult to tell how long it is going on. She indicates sometime from couple of weeks to few years. We will also try to reach the family to see if we can get some better history in this patient. This is not associated with any eye, or ENT, cardiac or respiratory symptoms, but the ER notes indicate that the patient had a history of atrial fibrillation or at least suspicion for that. Since some of the notes Indicate that she is on dementia medication and I suspect that may be part of her problem which people may have considered prior to it. She does have a history of anxiety and depression, but she says that she does not see any psychiatrist. She does not appear to have any new musculoskeletal, constitutional, allergic GI or symptom associated with present symptomatology. PAST MEDICAL HISTORY: Positive for dizziness. She had MRI done in 2018. Those were reviewed and my consultation report from that time in 2019 were reviewed and she had multiple carotid Doppler since that time and she had an MRA, which was unremarkable. FAMILY HISTORY: Unremarkable. SOCIAL HISTORY: She does not have any [place] [address] CONSULTATION Name: AZAR TRAN Room: [address] IN .R.#: [id number] Admission: 03/09/20 Attend Phys: Seth Goss MD Discharge: 03/10/20 Date of : 38 Report #: [id number] PHYSICAL EXAMINATION: Indicates she is alert. She talks, but I do not think she has full cognition and I do not know how long it is going. Her speech looks intact sometime. I had difficulty understanding her, but that probably her baseline because she did not complain of any speech difficulty. Cranial nerve examinations appear noncontributory. There is no any ptosis or any symptoms suggestive of myasthenia gravis. When we objectively check her, stent does not look bad. In all 4 extremities she does appear to have reasonable strength, although it is difficult to tell. She said she can appreciates touch and her reflexes are present. There is no meningeal sign in this patient. There is no carotid bruit. She is reasonably well-developed individual with blood pressure is 118/65, pulse is 70, temperature is 98.2. Her pulses are palpable. She has no edema, cyanosis or jaundice. LABORATORY DATA: Indicates a white count of 7.2 and her GFR is only 33. IMPRESSION: It is difficult to form in this patient. I am going to talk to Dr. Goss to see if we need to consult Cardiology because of this history suggestive of atrial fibrillation, I will also try to reach some family member to get some more definite history to how long this weakness is all going on and what she can do and what she could not. We will get her evaluated by physical and occupational therapy and see how she does with them and that consultation is already in there. Depending upon that, we will make plan to see what else to do in this patient and how much workup, she requires. We will follow up this patient with you in couple of days and try to arrange that workup. Thank you very much for this referral. <ELECTRONICALLY SIGNED> By: Florentino Bradford MD 03/13/20 1055 1327 [id number] Bradford MD /nt
== END 2020-03-10 14:25 | disposition home or self-care (01) | DRG 682 ==
LOC: M.ERS 20:49 → M.TBA-ER 22:48 → M.2W 23:45
PROVIDERS: Personal Emergency Response Attendant; ADMIT Internal Medicine; ATTEND Internal Medicine
DX: N17.0 Acute kidney failure with tubular necrosis (principal); G92 Toxic encephalopathy; N39.0 Urinary tract infection, site not specified; E87.1 Hypo-osmolality and hyponatremia; F41.9 Anxiety disorder, unspecified; I10 Essential (primary) hypertension; F32.9 Major depressive disorder, single episode, unspecified; E11.9 Type 2 diabetes mellitus without complications; I48.91 Unspecified atrial fibrillation; F03.90 Unspecified dementia, unspecified severity, without behavioral disturbance, psychotic disturbance, mood disturbance, and anxiety; Z20.828 Contact with and (suspected) exposure to other viral communicable diseases; Z60.2 Problems related to living alone; Z23 Encounter for immunization; I25.2 Old myocardial infarction; Z88.8 Allergy status to other drugs, medicaments and biological substances; Z79.899 Other long term (current) drug therapy

== ENCOUNTER 2021-03-06 15:41 | Emergency (ER) | payer OTHER ==
[~2021-03-06] VITALS: Ht 157.5 cm; Wt 68.0 kg
[~2021-03-06 15:41] MED LIST changes: +CIPRO500 MG PO
[2021-03-06] MEDS ORDERED: CEPHALEXIN500 MG PO (19:06)
[2021-03-06 19:19] VITALS: BP 148/98
== END 2021-03-06 19:20 | disposition home or self-care (01) ==
LOC: M.ERS 15:41
DX: S01.111A Laceration without foreign body of right eyelid and periocular area, initial encounter (principal); F41.9 Anxiety disorder, unspecified; F32.9 Major depressive disorder, single episode, unspecified; I10 Essential (primary) hypertension; E11.9 Type 2 diabetes mellitus without complications; Z90.49 Acquired absence of other specified parts of digestive tract; Z79.899 Other long term (current) drug therapy; Z88.8 Allergy status to other drugs, medicaments and biological substances; W19.XXXA Unspecified fall, initial encounter; Y93.89 Activity, other specified; Y92.89 Other specified places as the place of occurrence of the external cause; Y99.8 Other external cause status

== ENCOUNTER 2021-05-22 17:24 | Observation (INO) | payer OTHER ==
[~2021-05-22] VITALS: Ht 157.5 cm; Wt 57.6 kg
--- NOTE | ~2021-05-22 | CON ---
[address] [address] CONSULTATION Name: AZAR TRAN Room: [address] Deb Queen#: [id number] Admission: 05/22/21 Attend Phys: Rene Amaya Discharge: 05/23/21 Date of : 38 Report #: [id number] THIS REPORT FOR: cc: Иван Whatley Ghaison F. DO Khan, Abid R. MD ~ DATE OF CONSULTATION: 05/23/2021 NEPHROLOGY CONSULTATION REASON FOR CONSULTATION: Acute kidney injury. HISTORY OF PRESENT ILLNESS: An 80-year-old female who was admitted with generalized weakness. She had a creatinine at 1.6 on admission. Previous one in our system was 1.4. She was started on IV fluids, was also found to be hyponatremic at 126. She has no complaints presently. Denies any nausea, vomiting, diarrhea. Does take an Advil nightly. Otherwise, he is feeling well, has no complaints. REVIEW OF SYSTEMS: Constitutional, psych, heme, eyes, ENT, respiratory, cardiac, GI, , endocrine, all negative except as documented above. PAST MEDICAL HISTORY: Diabetes, hypertension, depression, anxiety, atrial fibrilation. FAMILY HISTORY: Not pertinent in this 80-year-old female. CURRENT MEDICATIONS: Reviewed. SOCIAL HISTORY: No alcohol. PHYSICAL EXAMINATION: VITAL SIGNS: Blood pressure is 100/51, pulse 70, respirations 18, temperature 36.4. GENERAL: No acute distress. EYES: Open. EARS: Externally normal. NECK: Supple. CARDIOVASCULAR: Regular rate. LUNGS: No crackles. ABDOMEN: Soft. MUSCULOSKELETAL: Nontender. PSYCHIATRIC: Awake, alert. LABORATORY DATA: White cell count 5.4, hemoglobin 9.1, platelets [place] [address] CONSULTATION Name: AZAR TRAN Room: [address] [place]#: [id number] Admission: 05/22/21 Attend Phys: Rene Amaya Discharge: 05/23/21 Date of : 38 Report #: [id number] is 134, potassium 4.2, chloride 100, bicarbonate 23, BUN 24, creatinine 1.3, glucose 95, calcium 8.7, albumin 2.4. ASSESSMENT: 1. Acute kidney injury with admission creatinine of 1.6, it was 1.4 in 02/2020. UA is noted. Takes Advil nightly. 2. Hypoalbuminemia with an albumin of 2.4. 3. Hyponatremia with admission sodium of 126. 4. Hypertension. 5. Atrial fibrillation. 6. Diabetes. 7. Hypothyroidism. PLAN: Treat with IV fluids. Renal function is back to baseline. Sodium is improved. No other recommendations. Suspect this is due to volume depletion. We will sign off. Please call with any questions. By: [id number] De La Rosa MD /chente
--- NOTE | ~2021-05-22 | CON ---
[address] [address] CONSULTATION Name: AZAR TRAN Room: [address] [place] Queen#: [id number] Admission: 05/22/21 Attend Phys: Rene Amaya Discharge: 05/23/21 Date of : 38 Report #: [id number] THIS REPORT FOR: cc: Иван Whatley Ghaison F. DO Khosla, Parveen K. MD ~ DATE OF CONSULTATION: 05/23/2021 HISTORY OF PRESENT ILLNESS: This is an 80-year-old female patient who was seen in consultation from Dr. Goss. I talked to Dr. Goss multiple times and subsequently, I talked to the patient and the patient's son. The best I understand this patient has used a walker for a long time. She got weak in the legs, but she does not know why she got weak and I do not know whether she had any workup done to determine that. Sometime either one week or 4 weeks ago or several days ago, she became worse and she has even more difficulty walking. She came to Emergency Room and her sodium was low and that is being corrected. Son and the patient had constant conflict when I see this patient. I had recommended that the patient stays and get the workup done. She adamantly refused that. The son tried to persuade her to stay and she got angry and she said if you do not take care of me, you can call other son. I tried to calm her down, but it was very difficult to calm her down. She neither will give any appropriate history nor she will cooperate with examination and questioning virtually everything. She is on lamotrigine for some reason, I do not know why she is on lamotrigine. She is on pain medication, she will not tell me why she is on pain medication. She is on Aricept. One of the records says that she has a history of atrial fibrillation and I try to elaborate that further, she will not give any history. She apparently has a history of diabetes, depression and anxiety after repeatedly asking her to tell us what that is and give us some more history, she declined and she refused and got agitated. This is all I could get on 14-point review of systems which I attempted. PAST MEDICAL HISTORY: She refused to give and it is from the records and it is as summarized above. FAMILY HISTORY: Also she refused to give. SOCIAL HISTORY: She said she does not drink or smoke. PHYSICAL EXAMINATION: Her cooperation was very limited. She was alert. Her speech was understandable. She did tell me what month it is, but after that she will not answer orientation or memory question because she thinks it was unnecessary. She moved all 4 extremities for me and did the position sense and she refused further cooperation with examination. Cardiorespiratory examination appear unremarkable. She did have a CT scan of the head which did [place] [address] CONSULTATION Name: AZAR TRAN Room: [place] [address] VALERIA Queen#: [id number] Admission: 05/22/21 Attend Phys: Rene Amaya Discharge: 05/23/21 Date of : 38 Report #: [id number] LABORATORY DATA: Her hemoglobin is low. Her sodium was low. IMPRESSION: I told the patient multiple times that she needs to be in the hospital to address what her ambulation difficulty is from. She adamantly refused that. She understands the consequences of refusing it, but she did. She had a fight with her son over this and nobody could persuade her. I discussed the patient with Dr. Goss again. I spent more than 50 minutes of time taking care of this patient and majority was spent counseling and coordinating but the patient is adamant that she is going home. It does not matter what happened. I am not sure what else can be done. Thank you very much for this referral. By: 1607 1933Ptalat Bradford MD /chente
[~2021-05-22 17:24] MED LIST changes: +CEPHALEXIN500 MG PO
[2021-05-22 17:25] VITALS: BP 114/61
[2021-05-22 17:49] LABS: ABSOLUTE BASOPHILS 0.1 thou/uL (0.0-0.2); ABSOLUTE EOSINOPHILS 0.1 thou/uL (0.0-0.7); ABSOLUTE LYMPHOCYTES 1.3 thou/uL (0.8-5.3); ABSOLUTE MONOCYTES 0.6 thou/uL (0.0-1.2); ABSOLUTE NEUTROPHILS 4.6 thou/uL (1.6-8.1); EOSINOPHILS 1.6 %; HEMATOCRIT 29.5 % (37.0-47.0); LYMPHOCYTES 19.7 %; MCH 32.2 pg (26.0-34.0); MCV 94.6 fL (80.0-100.0); MPV 6.2 fl. (7.2-11.1); NUCLEATED RBCS 0 /100WBC; PLATELET COUNT* 393 thou/uL (150-400); POLYS 68.7 %; RBC 3.12 mil/uL (4.20-5.00); RDW-CV 13.2 % (10.5-14.5); WBC 6.7 thou/uL (4.0-11.0)
[2021-05-22 17:58] LABS: CALCIUM 9.1 mg/dL (8.5-10.1); CREATININE 1.6 mg/dL (0.6-1.3); POTASSIUM 4.4 mmol/L (3.5-5.1)
[2021-05-22 18:09] LABS: ALBUMIN 2.7 g/dL (3.4-5.0); TOTAL BILIRUBIN 0.3 mg/dL (<0.1-1.0); TOTAL PROTEIN 6.4 g/dL (6.4-8.2)
--- NOTE | 2021-05-22 19:00 | NUR ---
ASSUMED PT CARE AT THIS TIME
[2021-05-22 19:30] VITALS: BP 118/59
[2021-05-22 23:30] VITALS: BP 117/74
[2021-05-23 03:30] VITALS: BP 118/60
[2021-05-23 07:07] VITALS: BP 121/54; BP 151/64
[2021-05-23 08:35] LABS: ABSOLUTE EOSINOPHILS 0.1 thou/uL (0.0-0.7); ABSOLUTE LYMPHOCYTES 1.3 thou/uL (0.8-5.3); ABSOLUTE MONOCYTES 0.5 thou/uL (0.0-1.2); ABSOLUTE NEUTROPHILS 3.4 thou/uL (1.6-8.1); BASOPHILS 0.6 %; EOSINOPHILS 2.6 %; HEMATOCRIT 27.3 % (37.0-47.0); HEMOGLOBIN 9.1 gm/dL (12.0-15.0); LYMPHOCYTES 23.5 %; MCH 32.4 pg (26.0-34.0); MCHC 33.4 g/dL (28.0-37.0); MCV 96.9 fL (80.0-100.0); MONOCYTES 10.1 %; MPV 6.3 fl. (7.2-11.1); NUCLEATED RBCS 0 /100WBC; PLATELET COUNT* 333 thou/uL (150-400); POLYS 63.2 %; RBC 2.82 mil/uL (4.20-5.00); RDW-CV 13.1 % (10.5-14.5); WBC 5.4 thou/uL (4.0-11.0)
[2021-05-23 08:45] LABS: URINE BILIRUBIN NEGATIVE (Negative); URINE BLOOD TRACE (Negative); URINE CLARITY CLEAR; URINE COLOR YELLOW; URINE GLUCOSE-RANDOM NEGATIVE (Negative); URINE KETONES NEGATIVE (Negative); URINE LEUKOCYTES NEGATIVE (Negative); URINE NITRITE NEGATIVE (Negative); URINE PROTEIN NEGATIVE (Negative); URINE UROBILINOGEN 0.2 E.U./dl (0.2-1.0)
[2021-05-23 08:52] LABS: ALBUMIN 2.4 g/dL (3.4-5.0); CALCIUM 8.7 mg/dL (8.5-10.1); CREATININE 1.3 mg/dL (0.6-1.3); POTASSIUM 4.2 mmol/L (3.5-5.1); TOTAL BILIRUBIN 0.2 mg/dL (<0.1-1.0); TOTAL PROTEIN 5.7 g/dL (6.4-8.2)
--- NOTE | 2021-05-23 09:38 | EKG ---
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 : 1940 Requested By: Michael Law Order Number: [id number] MD: Charles Kasper Measurements Intervals [place] Rate: 68 P: 19 MA: 221 QRS: -3 QRSD: 131 T: 46 QT: 450 QTc: 479 Interpretive Statements Sinus rhythm Borderline prolonged MA interval Nonspecific intraventricular conduction delay Inferior infarct, old cannot be excluded Compared to ECG 03/08/2020 20:57:46 Intraventricular conduction delay now present Myocardial infarct finding now possible Sinus bradycardia no longer present Electronically Signed On 05-23-2021 9:37:53 RADIOLOGIC THERAPIST by Charles Kasper [email or web address] <ELECTRONICALLY SIGNED> By: Charles Kasper MD, [facility] 05/23/21 0937 175 175 Charles Kasper MD, [facility] /EPI
--- NOTE | 2021-05-23 09:47 | NUR ---
Pt is admitted to the hospital for Generalized Weakness on 05/22/21. Met with pt and her son - Kalia to complete assessment. Pt is alert and oriented x3. Pt reports she lives with her son in a home with 2 steps to enter. Pt was ambulating with a walker and was independent in ADL's two weeks ago but started progressively becoming weaker and was requiring more assistance from her son. Pt has a recent hx of HH but was unable to recall the name of the agency. No hx of DME or SNF. Chart reports pt has a DPOA - but son didn't seem to know if they had this paperwork completed and pt is adamant she can make her own decisions at this time. Pt fills her prescriptions at [facility] in [place] and reports she has seen her PCP recently. CM to continue to follow for discharge planning.
--- NOTE | 2021-05-23 10:13 | NUR ---
PT IS AGITATED AND DEMANDING TO LEAVE AT THIS TIME. DESCALATION WAS ATTEMPTED BUT WITH LITTLE SUCCESS.
[2021-05-23 11:05] VITALS: BP 100/51
== END 2021-05-23 14:49 | disposition home or self-care (01) ==
LOC: M.ERS 17:24 → M.TBA-ER 18:55
PROVIDERS: Internal Medicine; Physician Assistant; ADMIT Internal Medicine; ATTEND Internal Medicine
DX: R53.1 Weakness (principal); E87.1 Hypo-osmolality and hyponatremia; Z20.822 Contact with and (suspected) exposure to COVID-19; N28.9 Disorder of kidney and ureter, unspecified; E86.0 Dehydration; I48.91 Unspecified atrial fibrillation; F41.9 Anxiety disorder, unspecified; F32.9 Major depressive disorder, single episode, unspecified; I10 Essential (primary) hypertension; E11.9 Type 2 diabetes mellitus without complications; I25.2 Old myocardial infarction; Z90.49 Acquired absence of other specified parts of digestive tract; Z79.82 Long term (current) use of aspirin; Z79.84 Long term (current) use of oral hypoglycemic drugs; Z79.899 Other long term (current) drug therapy; Z88.8 Allergy status to other drugs, medicaments and biological substances